=== PATIENT | male | born 1960 | race Caucasian/White ===

== ENCOUNTER 2018-12-18 13:17 | Outpatient (REF) | payer BC, SELFPAY ==
--- NOTE | 2018-12-18 08:40 | SKI_PTH ---
PATIENT: Thierno Bernard LOC: [facility] U#:[id number] AGE/SX: 58/M ROOM: RE12/18/[address]: Brianna Keys : 1960 BED: DIS: 12/18/2018 SPEC #: [id number] RECD: 12/19/18 09:08 STATUS: MAXIME LIN #: [id number] MINAL: 12/18/18 08:[address]: Brianna Keys DEPT: Surgical Specimen RECD BY: Emeka Hines Tissues: 1 - SKIN BIOPSY(SHAVE/PUNCH) Procedures: SKIN LEVEL 4 Comments: [id number]
== END 2018-12-18 13:37 ==
LOC: NCHCN 13:17
PROVIDERS: PCP Internal Medicine; Visit Provider Internal Medicine
DX: L91.8 Other hypertrophic disorders of the skin (principal)
CPT/HCPCS: 88305

== ENCOUNTER 2018-12-18 16:15 | Outpatient (REF) | payer BC, SELFPAY ==
[2018-12-18 22:42] LABS: Cholesterol 191 mg/dL (50-200); HDL Cholesterol 47 mg/dL (40-60); LDL CHOLESTEROL 123 mg/dL (<100); Triglyceride 87 mg/dL (30-150)
== END 2018-12-18 16:35 ==
LOC: NCHCN 16:15
PROVIDERS: PCP Internal Medicine; Visit Provider Internal Medicine
DX: E66.9 Obesity, unspecified (principal); Z13.220 Encounter for screening for lipoid disorders
CPT/HCPCS: 80061; 83721

== ENCOUNTER 2020-08-01 11:13 | Outpatient (CLI) | payer BC, SELFPAY ==
[2020-08-03 09:43] LABS: COVID-19 RT-PCR Result Positive (Negative)
== END 2020-08-01 11:33 ==
PROVIDERS: PCP Family Medicine; Visit Provider Family Medicine
DX: Z11.59 Encounter for screening for other viral diseases (principal)
CPT/HCPCS: U0003

== ENCOUNTER 2020-12-19 04:22 | Outpatient (CLI) | payer BC, SELFPAY ==
[2020-12-19 07:26] LABS: Hemoglobin A1C 6.3 % (<5.7)
[2020-12-19 08:18] LABS: ALT 62 U/L (16-63); AST 29 U/L (15-37); Albumin 3.8 g/dL (3.4-5.0); Alkaline Phosphatase 79 U/L (46-116); Anion Gap 6.7 mmol/L (3-11); BUN 14 mg/dL (7-18); Bilirubin, Total 0.3 mg/dL (0.2-1.0); CO2 29.3 mmol/L (21.0-32.0); CREATININE 0.9 mg/dL (0.70-1.30); Calcium 8.8 mg/dL (8.5-10.1); Calculated LDL 97 mg/dL (<100); Chloride 107 mmol/L (98-107); Cholesterol 155 mg/dL (<200); Glucose 132 mg/dL (74-106); HDL Cholesterol 39 mg/dL (40-60); Potassium 4.8 mmol/L (3.5-5.1); Sodium 143 mmol/L (136-145); Triglyceride 99 mg/dL (<150)
== END 2020-12-19 04:23 | disposition home or self-care (01) ==
LOC: LBO 04:23
PROVIDERS: PCP Family Medicine; Visit Provider Nurse Practitioner Family
DX: F10.21 Alcohol dependence, in remission (principal); Z13.1 Encounter for screening for diabetes mellitus; Z13.220 Encounter for screening for lipoid disorders
CPT/HCPCS: 36415; 80053; 80061; 83036

== ENCOUNTER 2021-02-07 15:08 | Outpatient (REF) | payer BC, SELFPAY ==
[2021-02-07 18:48] LABS: HCT 45.2 % (40.0-50.0); HGB 15.3 g/dL (13.5-17.5); MCHC 33.8 % (32.0-36.0); MCV 91.5 fL (80-95); MPV 10.6 fL (8.0-11.0); Platelet Count 280 10^3/uL (130-400); RBC 4.94 10^6/uL (4.36-5.78); RDW 12.5 % (11.8-14.1); RDW-SD 42.1 fL
[2021-02-07 18:54] LABS: ALT 65 U/L (16-63); AST 32 U/L (15-37); Albumin 3.8 g/dL (3.4-5.0); Alkaline Phosphatase 85 U/L (46-116); Amylase 33 U/L (25-115); Anion Gap 7.8 mmol/L (3-11); BUN 14 mg/dL (7-18); Bilirubin, Total 0.4 mg/dL (0.2-1.0); CO2 26.2 mmol/L (21.0-32.0); Calcium 9.3 mg/dL (8.5-10.1); Chloride 105 mmol/L (98-107); Glucose 261 mg/dL (74-106); Lipase 80 U/L (73-393); Potassium 4.5 mmol/L (3.5-5.1); Sodium 139 mmol/L (136-145)
== END 2021-02-07 15:09 | disposition home or self-care (01) ==
LOC: LBN 15:08
PROVIDERS: PCP Nurse Practitioner Family; Visit Provider Emergency Medicine
DX: R10.13 Epigastric pain (principal)
CPT/HCPCS: 80053; 83690; 85027; 82150

== ENCOUNTER 2022-11-01 03:09 | Outpatient (CLI) | payer BC, SELFPAY ==
[2022-11-01 18:58] LABS: PSA, Screening 2.3 ng/mL (<=4.5)
== END 2022-11-01 03:10 | disposition home or self-care (01) ==
LOC: LBO 03:09
PROVIDERS: PCP Nurse Practitioner Family; Visit Provider Nurse Practitioner Family
DX: R39.12 Poor urinary stream (principal); Z12.5 Encounter for screening for malignant neoplasm of prostate
CPT/HCPCS: 36415; 84153

== ENCOUNTER 2023-03-04 09:42 | Emergency (ER) | payer BC, SELFPAY ==
[2023-03-04] VITALS (17 sets, daily range): BP systolic 136–162; BP diastolic 71–82; PULSE 46–58; RESP 15–22; TEMP 36.5; O2SAT 95–98
--- NOTE | 2023-03-04 09:30 | RT.EKG_ITS ---
APPROVED REPORT Exam: Resting ECG Reason for Exam: chest pain Patient Location: E HR:51 bpm ECG Measurements Heart Rate 51 AXIS CA 191 P 45 QRSd 90 QRS 269 QT 446 T 32 QTc 407 Conclusion Sinus bradycardia...rate< [address] segement or T wave abnormalitites to suggestive occluisve DE.
--- NOTE | 2023-03-04 10:00 | DI.RAD_ITS ---
Exam(s) XR PORTABLE CHEST AP EXAM: XR PORTABLE CHEST AP CLINICAL HISTORY: left sided chest pain. TECHNIQUE: 2D digital imaging was performed. COMPARISON: No exams were available for comparison FINDINGS: Single AP portable view. Heart size is upper normal. The mediastinum is not widened. Lungs are clear. No infiltrates nor obvious pleural effusions. IMPRESSION: No acute pulmonary findings on this single AP portable view of the chest. DATA REPOSITORY: RADIATION DOSE DELIVERED:
[2023-03-04 10:19] LABS: Abs Immature Grans 0.02 10^3/uL (0.0-0.06); Absolute Basophil Count 0.05 10^3/uL (0.0-0.2); Absolute Eosinophil Count 0.27 10^3/uL (0.0-0.7); Absolute Lymphocyte Count 2.69 10^3/uL (1.2-3.4); Absolute Monocyte Count 0.69 10^3/uL (0.1-0.8); Absolute Neutrophil Count 3.36 10^3/uL (1.2-6.7); Basophils % 0.7; Eosinophils % 3.8; HCT 42.5 % (40.0-50.0); HGB 14.9 g/dL (13.5-17.5); Immature Grans % 0.3; MCHC 35.1 % (32.0-36.0); MCV 91 fL (80-95); MPV 9.6 fL (8.0-11.0); Monocytes % 9.7; Neutrophils % 47.5; Platelet Count 229 10^3/uL (130-400); RBC 4.66 10^6/uL (4.36-5.78); RDW-SD 43.7 fL; WBC 7.08 10^3/uL (4.4-10.8)
[2023-03-04] MEDS: Aspirin 81 MG CHEW 324 MG CH (10:23)
--- NOTE | 2023-03-04 10:34 | ED.GENADUL_ITS ---
Discharge Plan Disposition Patient Disposition: Home Discharge Details Clinical Impression: Chest pain Primary Care Provider: Marshall Burger ED Provider: Regina Fischer Home Meds and New Rx's Prescriptions: No Action sumatriptan succinate [Imitrex] 50 mg tablet See Rx Instructions PO .COMPLEX Qty: 10 0RF Patient Comments: no longer taking 03/04/23 CT Rx Instructions: take 1 tab at onset of headache; if no relief may repeat 1 tab after at least 2 hrs; max = 4 tabs/24 hr PO (DME) Advanced Gluc Meter Test Strip Strip See Rx Instructions .ROUTE .MEDSUPPLY Qty: 10 0RF Rx Instructions: Daily (DME) blood-glucose meter [Advanced Glucose Meter] Misc See Rx Instructions .ROUTE .MEDSUPPLY Qty: 1 0RF Rx Instructions: Daily (DME) Acti-Polo Lancets 23 gauge misc See Rx Instructions .ROUTE .MEDSUPPLY Qty: 25 0RF Rx Instructions: Daily metformin 500 mg tablet 1,000 mg PO BID Qty: 180 4RF esomeprazole magnesium [Nexium] 20 MG capsule,delayed release(DR/EC) 1 cap PO DAILY Discharge Instructions Instructions: Chest Pain (ED) Additional Instructions: Call your primary care doctor today to schedule an appointment within the next week to follow up on your visit here. Medical Decision Making 62yo M with prediabetes, no prior cardiac history presenting with left sided chest and back pain x 1 day. Initially severe, sharp, radiating directly into back. Hypertensive with SBP in 160's, vital signs otherwise reassuring. No reproducible chest wall tenderness or pain with ranging of shoulder. EKG sinus bradycardia with rate in 50's, no concerning ST segment or T wave abnor malities to suggest occlusive MA. Characteristics of pain concerning for possible dissection; evaluated further with CTA which was independently reviewed, agree with radiology read, no dissection or other intrathoracic pathology to explain patient's symptoms. incidental gallstone and diverticulosis noted. CXR independently reivewed, agree with radiology read; no focal consolidation to sugest penuonia, no pneumothorax.. Labs ordered and reviewed, CBC & CMP with no actionable abnormalities, normal lipase, normal initial troponin. On reassessment patient in good spirits, reports pain impro bashir, singing to Grateful along with at bedside. Delta troponin negative. HEART score 2 (1 age, 1 RF), low risk. Patient requests discharge home which is reasonable; advised to follow up with his PCP this week. Advised of incidental findings of gallstone, diveritculosis. Discharged home; discharge instructions including return precautions were reviewed with patient who verbalized understanding. All questions were answered and they are in full agreement with the plan. Imaging Data Radiologic Study: Imaging: CT Scan Radiologist's impression: IMPRESSION: 1. No evidence of acute aortic dissection, as per request. 2. No aneurysms. 3. Diverticulosis of the left side of the colon and sigmoid. There is some circumferential mural thickening in the sigmoid over a distance of approximately 12 cm. Probably muscular hypertrophy related to the diverticulosis. Recommend follow-up outpatient colonoscopy. 4. Other findings as above. Radiologic Study #2: Imaging: X-Ray Radiologist's impression: IMPRESSION: No acute pulmonary findings on this single AP portable view of the chest. Lab Data Lab results reviewed: Yes I reviewed the patient's lab results. Lab results narrative: Laboratory Tests Range/Units 03/04/23 03/04/23 03/04/23 09:58 09:58 13:09 WBC (4.4-10.8) 10^3/uL 7.08 RBC (4.36-5.78) 10^6/uL 4.66 Hgb (13.5-17.5) g/dL 14.9 Hct (40.0-50.0) % 42.5 MCV (80-95) fL 91 MCH (27.0-33.0) pg 32.0 MCHC (32.0-36.0) % 35.1 RDW (11.8-14.1) % 13.0 Plt Count (130-400) 10^3/uL 229 MPV (8.0-11.0) fL 9.6 Immature Gran % 0.3 Neutrophils % 47.5 Lymphocytes % 38.0 Monocytes % 9.7 Eosinophils % 3.8 Basophils % 0.7 Nucleated RBC % (0.0-0.3) % 0.0 Absolute Neutrophils (1.2-6.7) 10^3/uL 3.36 Absolute Lymphocytes (1.2-3.4) 10^3/uL 2.69 Absolute Monocytes (0.1-0.8) 10^3/uL 0.69 Absolute Eosinophils (0.0-0.7) 10^3/uL 0.27 Absolute Basophils (0.0-0.2) 10^3/uL 0.05 Sodium (136-145) mmol/L 142 Potassium (3.5-5.1) mmol/L 4.2 Chloride (98-107) mmol/L 106 Carbon Dioxide (21.0-32.0) mmol/L 26.9 Anion Gap (3-11) mmol/L 9.1 BUN (7-18) mg/dL 16 Creatinine (0.70-1.30) mg/dL 0.9 Est GFR (CKD-EPI 2020) (mL/min/1.73m2) 95.37 Glucose (74-106) mg/dL 110 H Calcium (8.5-10.1) mg/dL 9.3 Magnesium (1.8-2.4) mg/dL 1.8 Total Bilirubin (0.2-1.0) mg/dL 0.6 AST (15-37) U/L 38 H ALT (16-63) U/L 71 H Alkaline Phosphatase (46-116) U/L 72 Troponin I (<or=60) ng/L < 50 < 50 NT-Pro-B Natriuret Pep (<300) pg/mL 149 Total Protein (6.4-8.2) g/dL 7.3 Albumin (3.4-5.0) g/dL 4.0 Lipase (16-77) U/L 28 HPI General Date/Time Provider Initiated Documentation: 03/04/23 09:50 . Limitations to Documentation: no limitations . Information obtained by: patient and family . HPI Narrative: 62yo M with prediabetes, no prior cardiac history presenting with left sided chest and back pain x 1 day. Symptoms started yesterday evening and have been persistent, waxing and waning in severity, worst first thing this morning. Initially severe, sharp, radiating directly into back. Currently 2/10. Pain worse with some movements of left shoulder but not consistently. Otherwise no alleviating or aggravating factors. No shortness of breath, presycnope, syncope, LE edema, numbness/tingling/weakness. Significant amount of physical labor over the past three days; has had similar symptoms in the past with increased activity which he attributes to muscle strain. He is otherwise in his usual state of health. Related Data Home Medications Medication Instructions Recorded Confirmed esomeprazole magnesium 20 mg 1 cap PO DAILY 04/05/16 03/04/23 capsule,delayed release (Nexium) blood sugar diagnostic (Advanced #10 ea 02/15/21 03/04/23 Glucose Meter Test Strips) blood-glucose meter (Advanced #1 ea 02/15/21 03/04/23 Glucose Meter) lancets 23 gauge (Acti-Polo #25 ea 02/15/21 03/04/23 Lancets) sumatriptan succinate 50 mg tablet See Rx Instructions PO .COMPLEX 10/05/22 10/05/22 (Imitrex) #10 tabs metformin 500 mg tablet 1,000 mg PO BID #180 tabs 11/12/22 03/04/23 Previous Rx's Medication Instructions Recorded blood sugar diagnostic (Advanced #10 ea 02/15/21 Glucose Meter Test Strips) blood-glucose meter (Advanced #1 ea 02/15/21 Glucose Meter) lancets 23 gauge (Acti-Polo #25 ea 02/15/21 Lancets) sumatriptan succinate 50 mg tablet See Rx Instructions PO .COMPLEX 10/05/22 (Imitrex) #10 tabs metformin 500 mg tablet 1,000 mg PO BID #180 tabs 11/12/22 Allergies Allergy/AdvReac Type Severity Reaction Status Date / Time No Known Allergies Allergy Verified 03/04/23 09:55 General Stated Complaint: Chest Pain JEAN PAUL: 2 Review of Systems Narrative: see HPI PFSH All Active Problems (Updated 03/04/23 @ 14:53 by Regina Fischer MD) Chest pain (Acute) Weak urine stream (Acute) Elevated blood pressure reading (Acute) Allergic rhinitis (Acute) Pre-diabetes (Acute) Epigastric pain (Acute) Nexium works well to control Hx of adenomatous colonic polyps (Acute) History of Franco's esophagus (Acute) GERD (gastroesophageal reflux disease) (Chronic) Obesity (BMI 30.0-34.9) (Acute) Diverticulosis of sigmoid colon (Acute) Hearing loss, sensorineural (Acute) Family History (Updated 12/14/20 @ 10:29 by Attila Trimble) Mother , age 73 No problems noted. Father , age 83 No problems noted. Sister , age 69 No problems noted. Sister No problems noted. Sister No problems noted. Brother No problems noted. Son No problems noted. Other Alcohol abuse Hyperlipidemia Hypertension Substance abuse Social History (Updated 12/15/21 @ 12:29 by Jinny Mario) Smoking/Tobacco Use Status: Former Tobacco Use tobacco type: cigarettes Quit Date: 08/26/91 Tobacco: How many years used: 20 Quit status: quit date established Second Hand Exposure: Yes Smoking risk assessment performed?: Yes Alcohol Intake: former Drug use: Never Substance use type: does not use Caregiver/Support person: No Household members: spouse Housing: house Communication Needs: None Do you need help understanding health information?: Often Pets and animals: Yes Pets and animals: cat(s) and dog(s) Sexually active: No Do you think of yourself as: straight/heterosexual Current gender identity: male What is your relationship status?: How often do you talk on the phone with friends or family?: decline to answer How often do you get together with friends or relatives?: decline to answer How often do you attend hoahaoism or restoration services?: decline to answer Do you belong to any clubs or organized social groups?: decline to answer Panel score (0-1 are the most socially isolated patients): 1 Duration: < 15 minutes/day Frequency: 1-2 times per week Ada/Tenriism: Scientologist Special ada needs: No Seatbelt use: always Helmet use: Yes Helmet use: always Drive intox or ride w/intox garbage collector driver: No Exam Narrative Exam Narrative: General: Alert, well appearing, well nourished, appears uncomfortable Head: Normocephalic, atraumatic Neck: Trachea midline, Neck supple. ENT: MMM. No oropharyngeal lesions or exudate. Cardiac: RRR, no murmurs appreciated. Chest wall nontender. Resp: No respiratory distress. CTAB. Abd: Soft, non-distended, nontender : No suprapubic tenderness. No CVA tenderness. Extremities: No deformities. No peripheral edema. Radial pulses equal bilaterally. No pain with passive ROM at shoulder. Neurologic: GCS 15. Moves all extremities freely against gravity Course Vital Signs Vital signs: Vital Signs Temperature 36.5 C 03/04/23 09:45 Pulse 58 L 03/04/23 09:45 Respiratory Rate 15 03/04/23 09:45 Blood Pressure 162/80 H 03/04/23 09:45 Pulse Oximetry 98 03/04/23 09:45 Temperature 36.5 C 03/04/23 09:45 Temperature Source Tympanic 03/04/23 09:45 Pulse 58 L 03/04/23 09:45 Respiratory Rate 17 03/04/23 10:00 Respiratory Effort Normal 03/04/23 10:00 Respiratory Depth Normal 03/04/23 10:00 Respiratory Pattern Normal 03/04/23 10:00 Blood Pressure 162/80 H 03/04/23 09:45 Pulse Oximetry 98 03/04/23 09:45 Oxygen Delivery Method Room Air 03/04/23 09:45 Oxygen Flow Rate 0 03/04/23 09:45 Pain Level 2 03/04/23 10:00 Lab/Test Results Lab/Test Results: Laboratory Tests Range/Units 03/04/23 09:58 WBC (4.4-10.8) 10^3/uL 7.08 RBC (4.36-5.78) 10^6/uL 4.66 Hgb (13.5-17.5) g/dL 14.9 Hct (40.0-50.0) % 42.5 MCV (80-95) fL 91 MCH (27.0-33.0) pg 32.0 MCHC (32.0-36.0) % 35.1 RDW (11.8-14.1) % 13.0 Plt Count (130-400) 10^3/uL 229 MPV (8.0-11.0) fL 9.6 Immature Gran % 0.3 Neutrophils % 47.5 Lymphocytes % 38.0 Monocytes % 9.7 Eosinophils % 3.8 Basophils % 0.7 Nucleated RBC % (0.0-0.3) % 0.0 Absolute Neutrophils (1.2-6.7) 10^3/uL 3.36 Absolute Lymphocytes (1.2-3.4) 10^3/uL 2.69 Absolute Monocytes (0.1-0.8) 10^3/uL 0.69 Absolute Eosinophils (0.0-0.7) 10^3/uL 0.27 Absolute Basophils (0.0-0.2) 10^3/uL 0.05
[2023-03-04 10:56] LABS: ALT 71 U/L (16-63); AST 38 U/L (15-37); Alkaline Phosphatase 72 U/L (46-116); Anion Gap 9.1 mmol/L (3-11); BUN 16 mg/dL (7-18); Bilirubin, Total 0.6 mg/dL (0.2-1.0); CO2 26.9 mmol/L (21.0-32.0); CREATININE 0.9 mg/dL (0.70-1.30); Calcium 9.3 mg/dL (8.5-10.1); Chloride 106 mmol/L (98-107); Estimated GFR 95.37 (mL/min/1.73m2); Glucose 110 mg/dL (74-106); Lipase 28 U/L (16-77); Magnesium 1.8 mg/dL (1.8-2.4); NT-proBNP 149 pg/mL (<300); Potassium 4.2 mmol/L (3.5-5.1); Sodium 142 mmol/L (136-145); Total Protein 7.3 g/dL (6.4-8.2); Troponin I < 50 ng/L (<or=60)
--- NOTE | 2023-03-04 11:15 | DI.CT_ITS ---
Exam(s) CT THORAX ABD/PEL CTA EXAM: CT THORAX ABD/PEL CTA CLINICAL HISTORY: eval for aortic dissection. TECHNIQUE: Imaging Protocol: Axial computed tomography images with coronal and sagittal reformatted images were created and reviewed CONTRAST MATERIAL: Intravenous: Omnipaque 350 Contrast volume:100 ml Oral: None COMPARISON: No exams were available for comparison FINDINGS: CHEST: AORTA: The diameter of the ascending thoracic aorta is within normal limits. There is no evidence of aortic dissection. Minimal atherosclerotic disease evident in thoracic aorta. Abdominal aorta reveals a mild atherosclerotic involvement. No significant atherosclerotic narrowing at the aortic bifurcation nor in the iliac arteries and no aneurysmal dilatation of the iliac vessel s. Common femoral arteries appear unremarkable. Celiac and superior mesenteric arteries are patent. No significant stenosis. Inferior mesenteric artery is patent. There is no significant stenosis i n the renal arteries. LUNGS: No infiltrates nor pleural effusions. Mild atelectasis in the lingular segment of the left santino ng.. MEDIASTINUM: There is no hilar nor mediastinal adenopathy. CARDIAC: Heart size is normal. There is no pericardial effusion. ABDOMEN: There is no evidence of abdominal aortic aneurysm nor dissection.There is no aneurysmal dilatation of the common iliac arteries.The celiac and superior mesenteric arteries are patent. There is no ascites. LIVER: Liver is hypodense implying steatosis. No discrete focal hepatic lesions identified. GALLBLADDER/BILIARY: Subtle cholelithiasis. As seen on the coronal images. CBD is not dilated. PANCREAS: No evidence of pancreatic mass nor dilatation of the pancreatic duct. SPLEEN: Spleen is not enlarged. There are no intrasplenic lesions. ADRENALS: There are no significant adrenal masses. KIDNEYS: Small 1 cm exophytic cyst off the medial cortex of the left kidney noted. There are no leno d renal masses. No hydronephrosis.. ABDOMINAL AORTA: The abdominal aorta is not enlarged. LYMPH NODES: There is no retroperitoneal nor para-aortic adenopathy. No obvious mesenteric masses. ABDOMINAL WALL: No evidence of significant anterior abdominal wall hernia. Fat only containing umbil ical hernia. GI: Duodenal diverticulum noted overlying the pancreatic head.There are no ischemic appearing bowel l oops. PELVIS: LYMPH NODES: There is no intrapelvic nor inguinal adenopathy. GI: No evidence of appendicitis.Diverticulosis of the left side of the colon noted, including the sig moid. There is some thickening of the wall of the sigmoid over a distance of approximately 12 cm, pr obably related to the diverticulosis.No evidence of obvious acute diverticulitis. URINARY BLADDER: Slightly thickened wall. REPRODUCTIVE: Mildly enlarged prostate. Seminal vesicles unremarkable. OSSEOUS: No significant osseous lesions. IMPRESSION: 1. No evidence of acute aortic dissection, as per request. 2. No aneurysms. 3. Diverticulosis of the left side of the colon and sigmoid. There is some circumferential mural thi ckening in the sigmoid over a distance of approximately 12 cm. Probably muscular hypertrophy related to the diverticulosis. Recommend follow-up outpatient colonoscopy. 4. Other findings as above. RADIATION DOSE DELIVERED: 1,352.57mGy.cm Total DLP DATA REPOSITORY: All CT scans at this facility are submitted to the National Radiology Data Registry (NRDR) Dose Index Registry (DIR) with the [employer] (ACR). RADIATION OPTIMIZATION: All CT scans at this facility use at least one of these dose optimization te chniques: automated exposure control; mA and/or kV adjustment per patient size (includes targeted exa ms where dose is matched to clinical indication); or iterative reconstruction.
[2023-03-04] MEDS: Omnipaque 350 MG/ML 500 ML BTL-Imaging package IJ (12:04)
[2023-03-04] MEDS: Normal Saline - Diluent 50 ML VIAL IJ (12:04)
[2023-03-04 14:28] LABS: Troponin I < 50 ng/L (<or=60)
== END 2023-03-04 14:43 | disposition home or self-care (01) ==
PROVIDERS: Emergency Provider Student in an Organized Health Care Education/Training Program; PCP Nurse Practitioner Family
DX: R07.9 Chest pain, unspecified (principal); R00.1 Bradycardia, unspecified; R73.03 Prediabetes; K57.30 Diverticulosis of large intestine without perforation or abscess without bleeding; Z87.891 Personal history of nicotine dependence
CPT/HCPCS: 36415; 71275; 80053; 83690; 93005; 99284; 71045; 74174; 83735; 83880; 84484; 85025; 93010; 99283

== ENCOUNTER 2023-09-06 04:25 | Outpatient (CLI) | payer BC, SELFPAY ==
[2023-09-06 08:49] LABS: Calculated LDL 122 mg/dL (<100); Cholesterol 188 mg/dL (<200); HDL Cholesterol 50 mg/dL (40-60); Triglyceride 83 mg/dL (<150)
== END 2023-09-06 04:26 | disposition home or self-care (01) ==
LOC: LBO 04:26
PROVIDERS: PCP Nurse Practitioner Family; Visit Provider Nurse Practitioner Family
DX: Z13.1 Encounter for screening for diabetes mellitus (principal); Z13.220 Encounter for screening for lipoid disorders
CPT/HCPCS: 36415; 80061; 83036

== ENCOUNTER 2024-02-24 09:42 | Day surgery (SDC) | payer BC, SELFPAY ==
--- NOTE | 2024-02-23 20:44 | W.PM.DSUDISC ---
Date of service: 02/24/24 Time of Service: 12:36 Discharge Plan Disposition Patient Disposition: Home Condition: Good Discharge Details Reason For Visit: EGD and colonoscopy Attending Provider: Michael Swanson Primary Care Provider: Marshall Burger Home Meds and New Rx's Prescriptions: Continued lisinopril-hydrochlorothiazide 20-25 mg tablet 1 tab PO DAILY Qty: 90 3RF (DME) Advanced Gluc Meter Test Strip Strip See Rx Instructions .ROUTE .MEDSUPPLY Qty: 10 0RF Rx Instructions: Daily (DME) blood-glucose meter [Advanced Glucose Meter] Misc See Rx Instructions .ROUTE .MEDSUPPLY Qty: 1 0RF Rx Instructions: Daily (DME) Acti-Polo Lancets 23 gauge misc See Rx Instructions .ROUTE .MEDSUPPLY Qty: 25 0RF Rx Instructions: Daily metformin 500 mg tablet 1,000 mg PO BID Qty: 180 4RF esomeprazole magnesium [Nexium] 20 MG capsule,delayed release(DR/EC) 1 cap PO DAILY Discontinued bisacodyl [Dulcolax (bisacodyl)] 5 mg tablet,delayed release (DR/EC) 5 mg PO ONCE Qty: 4 0RF Rx Instructions: Take per colonoscopy instructions provided by ordering providers office polyethylene glycol 3350 17 gram/dose powder 17 g PO ONCE Qty: 238 0RF Rx Instructions: Take per colonoscopy instructions provided by ordering providers office Discharge Instructions Instructions: Colon polyps, Diverticulosis, High-fiber diet Additional Instructions: Butch, we are able to complete your procedures today without much difficulty. With regards to the upper endoscopy, there is a little bit of irregularity at the connection between your stomach and your esophagus. The area of irregularity, however, is quite small, and I suspect is more consistent with simple reflux as opposed to true Franco's esophagus. Regardless, I did do several biopsies here for them to examine under the microscope. There is also a small area of irregularity higher up in your esophagus. Clinically, it appears consistent with something called an esophageal inlet patch. This is a small patch of tissue from the stomach that actually grows in the esophagus. If the diagnosis is correct, it is not dangerous and nothing to worry about. I did do some biopsies of this as well to see if I am correct. Otherwise, the rest of your stomach, and the first portion of your small intestine, also called the duodenum, is totally normal. With regards to the colonoscopy, I did find and remove 3 small polyps today. They came out very smoothly, and all will be sent off for testing. The nature of these polyps will determine the timing of your next colonoscopy. Incidentally, you also have some diverticulosis. Diverticula are weak spots in the muscular part of the colon wall. They are extremely common in many of the patients that I do colonoscopies on. They can get infected and inflamed. During those episodes, we call it diverticulitis, and most patients are treated with antibiotics during those times. If they are inflamed, it typically manifests itself as pretty significant pain that usually on the left lower part of the abdomen. I hope you are is never bother you. Eating plenty of fiber, and staying well-hydrated and avoiding constipation are the mainstays of treatment. I did attach some general information here about colorectal polyps in addition to the diverticulosis. Once I have the results of all the biopsies, and the report on the polyps, the office will be in touch with recommendations for your next procedures 1. If tolerated, consume a soft, low fiber diet for 1-2 days. [address] Do not drive, drink alcohol, operate machinery, make critical decisions, or do activities that require coordination or balance for 24 hours. 3. Because air was put into your colon during the procedure, expelling air from your rectum (passing gas or farting) is normal. 4. You may not have a bowel movement for 1-3 days because of the colonoscopy prep. This is normal. 5. You may experience a sore throat for 24 to 48 hours. You may use throat lozenges or gargle with warm salt water to relieve the discomfort. 6. Because air was put into your stomach during the procedure, you may experience some belching. 7. Go directly to the emergency room if you notice any of the following: Develop chills (warm to touch), or if you have a thermometer and your temperature is above 101 Difficulty breathing or difficultly swallowing Persistent vomiting Severe abdominal pain, other than gas cramps Severe chest pain Black, tarry stools Any bleeding ? exceeding one tablespoon 8. Call your physician if the site where your intravenous was started becomes red, swollen, painful, and warm to touch. 9. Your physician has reviewed your pre-procedure medications. Please continue to take those medications as previously ordered. You will be given specific information/education regarding any changes to your medications before leaving. Activity:: Activity as Tolerated Diet:: As Tolerated Discharge Orders Discharge Orders: Discharge Order (Routine); Ordered 02/23/24 Ordered By: Michael Swanson DS: Diagnosis Discharge Diagnosis (1) Barretts esophagus: Status: Acute Asessment and Plan: Follow-up on biopsy results and polypectomy report
--- NOTE | 2024-02-23 20:45 | ENDO_ITS ---
Date of service: 02/24/24 Time of Service: 12:40 Endoscopy Report DATE OF PROCEDURE: 02/24/24 PRE-OP DIAGNOSIS: Barretts esophagus and screening colonoscopy POST-OP DIAGNOSIS: other (Esophageal inlet patch, Franco's esophagus; colon polyps, diverticulosis) PROCEDURE: EGD with biopsies and colonoscopy with polypectomy SURGEON: Michael Swanson ANESTHESIA TYPE: General:No Airway ESTIMATED BLOOD LOSS: 10 PATHOLOGY: other (Four-quadrant biopsies of the GE junction, biopsies of esophageal inlet patch at 18 cm from the incisors; 0.25 cm cecal polyp, 0.25 cm polyp at 55 cm, 0.25 cm polyp at 40 cm) COMPLICATIONS: None DISPOSITION: same day INDICATIONS: Butch is 63 years old with a history of Barretts esophagus and adenomatous polyps. He needs repeat screening EGD and colonoscopy today. PREP: Miralax/Dulcolax PROCEDURE START TIME: 11:49 PROCEDURE END TIME: 12:19 COLONOSCOPY RETRACTION TIME: 14 FINDINGS: Esophageal inlet patch 18 cm from the incisors, mild irregularity of the GE junction at 40 cm from the incisors; sigmoid diverticulosis, previous colonoscopic tattoo in the sigmoid colon, 0.25 cm cecal polyp, 0.25 cm polyp at 55 cm, 0.25 cm polyp at 40 cm PROCEDURE DESCRIPTION: After the initiation of anesthesia, and with the assistance of a bite block, I advanced a standard gastroscope through the mouth past the hypopharynx and into the esophagus.? Under the direct vision of the scope, I advanced down the esophagus towards the stomach.? Around 18 cm from the incisors on the left posterior wall of the esophagus was a small mucosal irregularity. Narrowband imaging was used to assist with analysis. Clinical features seem most consistent with an esophageal inlet patch. I advanced past this down the remainder of the esophagus. The Z-line was encountered at 40 cm from the incisors. There was very minor irregularity of the Z-line. Narrowband imaging was used here 2. Clinical features seem most consistent with some mild reflux, without overt features of Franco's esophagus. Advance camera down to the stom ach and insufflated into the rugae were completely obliterated. I performed retroflexion. I did not see any signs of any hiatal hernia. I then brought the camera down around the incisura angularis towards the pylorus. All of this was normal and healthy appearing. I was able to traverse the pylorus into the duodenum and down to about the junction of the second and third portion. There were no irregularities here. I brought the camera back into the stomach and emptied it, before coming up to the GE junction. Cold forceps biopsies were performed in all 4 quadrants to rule out true Franco's esophagus. I then brought the camera up to the irregularity mentioned above. Again, it was just about 18 cm beyond the incisors. Cold forceps biopsies were performed of this as well with minimal bleeding. We then rolled Butch into the left lateral decubitus position. I began with an external anorectal exam.? Perineum and skin were normal, as was the anal verge.? There was no evidence of external hemorrhoids.? Next, I performed a digital rectal exam.? I did not appreciate any abnormal findings.? Next, I advanced a colonoscope into the rectal vault.? I performed retroflexion.? This appeared normal.? Using insufflation, I then advanced the colonoscope beyond the rectal folds and into the sigmoid colon before advancing towards the cecum.? There was a previous area of colonoscopic tattoo within the sigmoid colon. Several passes were taken across this area. No abnormalities were appreciated. I continued advancing towards the right side.? The scope was noted to be in the cecum by id entification of the ileocecal valve and appendiceal orifice.? There was a small flat polyp in the cecum. It was less than 0.25 cm. This was removed with cold forceps with minimal bleeding. I then began withdrawing the colonoscope using repeated irrigation as necessary for full evaluation of the colonic mucosa. Around 55 cm from the anal verge I identified a 0.25 cm polyp. ?It appeared flat in character. ?I was able to remove this with a cold forcep. ?I examined the site, and there was minimal bleeding. ?Once this was completed, I continued to withdraw the scope and examine the remainder of the colonic mucosa.? Similarly, around 40 cm from the anus was another polyp. This was also about 0.25 cm. I removed this with cold forceps without any issues as well. Once the scope was withdrawn to the level of the rectum, great care was taken to examine portions of the rectal folds.? Finally, the scope was withdrawn and the patient was brought to the same-day surgery recovery unit as the anesthetic wore off. ?The findings and instructions were shared with the patient prior to discharge. Oneco bowel prep score from right to left was 2, 3, 3
[2024-02-24 10:15] VITALS: BP 131/52; PULSE 77; RESP 18; TEMP 36.8; O2SAT 97
[2024-02-24] MEDS: Lactated Ringers 1,000 ML 80 ML IV (10:42)
--- NOTE | 2024-02-24 11:52 | BOWEL_PTH ---
PATIENT: Thierno Bernard LOC: [facility] U#:[id number] AGE/SX: 63/M ROOM: RE02/24/[address]: Michael Swanson MD : 1960 BED: DIS: 02/24/2024 SPEC #: [id number] RECD: 02/24/24 13:12 STATUS: MAXIME RE #: [id number] MINAL: 02/24/24 11:[address]: Michael Swanson DEPT: Surgical Specimen RECD BY: Concha Graham ENTERED: 02/24/24 13:14 SP TYPE: Bowel OTHR DR: Marshall Burger, CENTR[employer]ILIZATION TECHNICIAN Tissues: 1 - ESOPHAGUS BIOPSY 2 - ESOPHAGUS BIOPSY 3 - BIOPSY BOWEL 4 - BIOPSY BOWEL 5 - BIOPSY BOWEL Procedures: GROSS AND MICRO LEVEL 4 Comments: [id number]
--- NOTE | 2024-02-24 12:01 | W.ANESPRE ---
General Info Date of Service Date Performed: 02/24/24 Height: 5 ft 10 in Weight: 107 kg Body Mass Index (BMI): 33.8 Surgical Procedure: Operation Date: 02/24/24 11:35 Proposed Procedure Side Surgeon p Colonoscopy/Gastroscopy Michael Swanson MD Actual Procedure Side Surgeon p Colonoscopy/Gastroscopy Not Applicable Michael Swanson MD Pre-Op Diagnosis Post-Op Diagnosis Screening Colonoscopy History of polyps Franco's Esophagus Screening Colonoscopy History of polyps Franco's Esophagus Meds Allergies and Home Medications Allergies Allergy/AdvReac Type Severity Reaction Status Date / Time No Known Allergies Allergy Verified 02/24/24 10:40 Home Medication Medication Instructions Recorded esomeprazole magnesium 20 mg 1 cap PO DAILY 04/05/16 capsule,delayed release (Nexium) blood sugar diagnostic (Advanced #10 ea 02/15/21 Glucose Meter Test Strips) blood-glucose meter (Advanced #1 ea 02/15/21 Glucose Meter) lancets 23 gauge (Acti-Polo #25 ea 02/15/21 Lancets) metformin 500 mg tablet 1,000 mg (2 x 500 mg) PO BID #180 07/31/23 tabs lisinopril 20 1 tab PO DAILY #90 tabs 08/28/23 mg-hydrochlorothiazide 25 mg tablet Current Visit Medications: Current Medications Generic Name Dose Route Start Last Admin Trade Name Freq PRN Reason Stop Dose Admin Hyoscyamine Sulfate 0.125 mg 02/23/24 20:47 Hyoscyamine 0.125 Mg Sl/Oral/Chew SL 03/24/24 20:46 DIRECTED PRN Ringer's Solution 1,000 mls @ 80 mls/hr 02/24/24 06:00 02/24/24 10:42 IV 02/24/24 23:59 80 mls/hr INFUSION CORA Administration IV Miscellaneous Supplies 1 each 02/24/24 06:00 Iv Access IV 02/24/24 23:59 DIRECTED CORA Ondansetron HCl 4 mg 02/23/24 20:47 Ondansetron 4 Mg/2 Ml Vial IVP 03/24/24 20:46 Q4H PRN PRN Nausea / Vomiting Sodium Chloride 0 ml 02/24/24 06:00 Normal Saline Flush 10 Ml Syr IV 02/24/24 23:59 PRN PRN Sodium Chloride 0 ml 07/01/24 06:00 Normal Saline 10 Ml Vial IJ 02/24/24 23:59 DIRECTED PRN Sterile Water 0 ml 02/24/24 06:00 Water,Injection,Sterile 10 Ml Vial IJ 02/24/24 23:59 DIRECTED PRN PFSH Active Problems Active Problems: Problem Status Onset Code Barretts esophagus K22.70 Essential hypertension I10 Abnormal CT scan, sigmoid colon R93.3 Weak urine stream R39.12 Allergic rhinitis J30.9 Pre-diabetes R73.03 Epigastric pain R10.13 Hx of adenomatous colonic polyps Z86.010 History of Franco's esophagus Z87.19 GERD (gastroesophageal reflux disease) K21.9 Obesity (BMI 30.0-34.9) E66.9 Diverticulosis of sigmoid colon K57.30 Hearing loss, sensorineural H90.5 Tobacco Smoking/Tobacco Use Status: Former Tobacco Use Passive smoking exposure: Yes Second hand exposure: Yes Alcohol Alcohol Intake: former Substance Use Substance use: Current Sobriety Substance use type: does not use Vital Signs and Lab Results Vital Signs Most Recent Vital Signs in EMR: Most Recent Vital Signs Temp Pulse Resp BP Pulse Ox 36.8 C 77 18 131/52 L 97 02/24/24 10:15 02/24/24 10:15 02/24/24 10:15 02/24/24 10:15 02/24/24 10:15 Point of Care Results Point of Care Results: Finger Stick Blood Glucose 115 02/24/24 10:33 Lab Results Blood Type / Crossmatch: No Data to Display Complete Blood Count: No Data to Display Complete Metabolic Panel: No Data to Display Liver Function Panel: No Data to Display Coagulation Panel: No Data to Display Cardiac Panel: No Data to Display Arterial Blood Gas: No Data to Display Venous Blood Gas: No Data to Display Pancreas Panel: No Data to Display Thyroid Panel: No Data to Display Infectious Disease: No Data to Display Blood Cultures: No Data to Display Toxicology Panel: No Data to Display Imaging and Studies Imaging and Studies Study information below may be from another EMR and interpreted by another provider. Please see original notes in EMR for more complete details. EKG Summary: Reviewed Anesthesia Assessment and Plan Anesthesia History Personal History: No History of Anesthesia Complications Family History: No Family History of Anesthesia Complications Exercise Tolerance Exercise Tolerance: Metabolic Equivalents>4 Pertinent Negatives Pertinent Negatives: No Major Cardiovascular Symptoms or Complaints and No History of CVA/TIA Cardiac & Pulmonary Exam Cardiac Exam: Normal S1/S2 Heart Sounds Pulmonary Exam: Clear Bilateral Breath Sounds Implantable Cardiac Device Does patient have a Pacemaker or an ICD?: No Airway Exam Known Difficult Airway: No Mallampati Class: 2 Mouth Opening: Normal (> 3cm) Thyromental Distance: Greater than 3 cm Neck Range of Motion: Full ROM Neck Circumference: Normal Teeth Condition: Generalized Poor Dentition ASA Classification ASA Score: ASA 2 Emergency Case?: No NPO Status NPO Status: NPO Clears >2 hours, Solids >8 hours Anesthesia Plan Resuscitation Status: Full Code Anesthesia Technique: General Anesthesia Airway Planned: Natural Airway Monitors Used: Standard Monitors
[2024-02-24 12:02] VITALS: BMI 33.8
[2024-02-24 12:26] VITALS: BP 133/64; PULSE 70; RESP 18; TEMP 36.6; O2SAT 95
[2024-02-24 12:58] VITALS: BP 128/73; PULSE 58; RESP 18; TEMP 36.6; O2SAT 97
--- NOTE | 2024-02-24 14:02 | W.ANESPOSTOP ---
Postoperative Evaluation Date, Time and Location Date Performed: 02/24/24 Time Performed: 12:28 Patient Location: Day Surgery Unit Vital Signs Most Recent Imported Vital Signs: Most Recent Vital Signs Temp Pulse Resp BP Pulse Ox 36.6 C 58 L 18 128/73 97 02/24/24 12:58 02/24/24 12:58 02/24/24 12:58 02/24/24 12:58 02/24/24 12:58 Pain Score Most Recent Pain Score: Most Recent Pain Score Pain Level 0 02/24/24 12:58 Assessment Mental Status: Awake (Alert & Oriented to Patient Baseline) Airway and Respiratory Function: Patent airway with normal (patient baseline) respiratory exam Cardiovascular Function: Hemodynamically Stable Hydration Status: Adequately Hydrated Nausea & Vomiting: No Nausea or Vomiting Pain: Pt. Denies Any Pain Peripheral Nerve Block: Patient did not receive a nerve block
== END 2024-02-24 13:16 | disposition home or self-care (01) ==
PROVIDERS: PCP Nurse Practitioner Family; Visit Provider Surgery
PROC: (CPT 45380; principal; 2024-02-24 11:30)
DX: K22.70 Barrett's esophagus without dysplasia (principal); Z12.11 Encounter for screening for malignant neoplasm of colon; I10 Essential (primary) hypertension; K57.30 Diverticulosis of large intestine without perforation or abscess without bleeding; D12.0 Benign neoplasm of cecum; K22.89 Other specified disease of esophagus; D12.5 Benign neoplasm of sigmoid colon
CPT/HCPCS: 45380; 43239; 88305; J2704

== ENCOUNTER 2025-07-02 00:57 | Outpatient (CLI) | payer BC, SELFPAY ==
[2025-07-02 17:41] LABS: Hemoglobin A1C 6.7 % (<5.7)
[2025-07-02 17:45] LABS: Anion Gap 10.8 mmol/L (3-11); BUN 21 mg/dL (7-18); CO2 27.2 mmol/L (21.0-32.0); Calcium 9.7 mg/dL (8.5-10.1); Chloride 102 mmol/L (98-107); Cholesterol 165 mg/dL (<200); Glucose 106 mg/dL (74-106); HDL Cholesterol 46 mg/dL (>or=40); Potassium 3.5 mmol/L (3.5-5.1); Sodium 140 mmol/L (136-145)
[2025-07-02 22:43] LABS: PSA, Screening 2.0 ng/mL (<=4.5)
== END 2025-07-02 00:58 | disposition home or self-care (01) ==
LOC: LOS 00:57
PROVIDERS: PCP Nurse Practitioner Family; Visit Provider Nurse Practitioner Family
DX: Z13.220 Encounter for screening for lipoid disorders (principal); Z13.1 Encounter for screening for diabetes mellitus; I10 Essential (primary) hypertension; Z12.5 Encounter for screening for malignant neoplasm of prostate
CPT/HCPCS: 36415; 80048; 80061; 84153; 83036